=== PATIENT | male | born 1990 | race African-American/Black ===

== ENCOUNTER 2022-08-13 09:50 | Emergency (ER) | payer OTHER ==
[~2022-08-13] VITALS: Ht 193 cm; Wt 90.7 kg
[2022-08-13 09:55] VITALS: BP 148/88
--- NOTE | 2022-08-13 10:10 | NUR ---
32YO MALE PT BIBA FROM [facility]E C/O [place] XYESTERDAY. PT STATES SI DUE TO RECENT MONEY ISSUES W/ FAMILY WHO HE NORMALLY GOES TO WHEN FEELING DEPRESSED. +AUDIO HALLUCINATIONS "VOICES TELLING ME TO KILL MYSELF". STATES PLAN WOULD BE TO " TRY TO OD ON MY PILLS" . REPORTS FIRST FENTANYL USE LAST NIGHT AND NORMALLY BEING DAILY METH USER. PT WITH HX OF SI [id number] AGO AND STATES ATTEMPTING " RUN ONTO TRAFFIC ". ALSO C/O GROIN PRESSURED PAIN W/ PAIN AT MOST ON MOVEMENT, NO VISIBLE INJURY NOTED. DENIES N/V/D, CHEST PAIN, SOB , FEVER OR CHILLS. PT AAOX4, NO VISIBLE DISTRESS, SPEAKING IN CLEAR SENTENCES. ROOM STRIPPED OF POTENTIAL HARMFUL ITEM. PT IN VIEW AND IN GOWN. BED AT LOWEST POSITION, BED RAILS UPX2. HX:BIPOLAR, SCHIZO NKA MEDS: SEROQUEL, BUSPAR, WELLBUTRIN
--- NOTE | 2022-08-13 10:15 | NUR ---
pt swabbed for covid(jovana/novel) handed to lab
--- NOTE | 2022-08-13 10:47 | NUR ---
32 y/o male biba from 03/12 in [place], c/o suicidal ideation after using meth, states it may have been laced with fentanyl. pt is now c/o numbness in bl feet and groin pain that started yesterday. pt denies plan to end life or hurt others/self, no hold in place. a&ox4, ambulates with steady gait. ermd made aware of pt status. pmh: meth use nka
[2022-08-13 11:42] LABS: BASOPHILS % (AUTO) 0.4 % (0.0-2.0); EOSINOPHILS # (AUTO) 0.5 K/uL (0-0.4); EOSINOPHILS % (AUTO) 5.6 % (0.0-4.0); HEMATOCRIT 43.9 % (36-52); HEMOGLOBIN 14.7 g/dL (12.0-18.0); LYMPHOCYTES # (AUTO) 2.9 K/uL (2.0-11.5); LYMPHOCYTES % (AUTO) 33.7 % (20.5-51.1); MEAN CORPUSCULAR HEMOGLOBIN 28 pg (27-31); MEAN CORPUSCULAR HGB CONC 34 g/dL (33-37); MEAN CORPUSCULAR VOLUME 84.6 fL (80-94); MONOCYTES # (AUTO) 0.7 K/uL (0.8-1.0); MONOCYTES % (AUTO) 7.7 % (1.7-9.3); NEUTROPHILS # (AUTO) 4.5 K/uL (1.8-7.7); NEUTROPHILS % (AUTO) 52.6 % (42.2-75.2); PLATELET COUNT (AUTO) 378 K/uL (140-450); RED BLOOD CELL COUNT(AUTO) 5.19 MIL/uL (4.20-6.10); RED CELL DISTRIBUTION WIDTH 13.5 % (11.6-13.7); WHITE BLOOD COUNT (AUTO) 8.5 K/uL (4.8-10.8)
[2022-08-13 12:10] LABS: ACETAMINOPHEN < 0.5 ug/ml (10-30); ALBUMIN 3.6 g/dL (3.4-5.0); ASPARTATE AMINOTRANSFERASE 21 U/L (15-37); CARBON DIOXIDE 28.6 mmol/L (21-32); CHLORIDE 103 mmol/L (98-107); CREATININE 1.1 mg/dL (0.6-1.3); GFR ARICAN-AMERICAN 100 mL/min (>90); GLUCOSE 108 mg/dL (74-106); POTASSIUM 3.6 mmol/L (3.5-5.1); SALICYLATE < 2.8 mg/dL (2.8-20.0); SODIUM SERUM 141 mmol/L (136-145); TOTAL BILIRUBIN 0.4 mg/dL (0.0-1.0); UREA NITROGEN, BLOOD 13 mg/dL (7-18)
[2022-08-13 12:36] LABS: BARBITURATE, URINE NEGATIVE ng/ml (NEG <=200); CANNABINOID, URINE POSITIVE ng/mL (NEG <=50); COCAINE, URINE NEGATIVE ng/mL (NEG <=300); OPIATE, URINE NEGATIVE ng/mL (NEG <=2000); PHENCYCLIDINE SCREEN,URINE NEGATIVE ng/mL (NEG <=25)
[2022-08-13 12:37] LABS: APPEARANCE,URINE CLEAR (CLEAR); BILIRUBIN,URINE 1+ (NEGATIVE); BLOOD, URINE NEGATIVE (NEGATIVE); COLOR,URINE YELLOW (YELLOW); LEUKOCYTE ESTERASE ,URINE NEGATIVE (NEGATIVE); NITRITE, URINE NEGATIVE (NEGATIVE); UGLUCOSE NEGATIVE (NEGATIVE)
[2022-08-13 12:53] LABS: BENZODIAZEPINE, URINE POSITIVE ng/mL (NEG <=200)
--- NOTE | 2022-08-13 13:20 | NUR ---
provided w/ food and drink. pt awake and eating in bed
--- NOTE | 2022-08-13 13:22 | NUR ---
CALL RECEIVED FROM MD CORTES. TO CALL BACK IN 30MIN
--- NOTE | 2022-08-13 16:21 | NUR ---
[facility] VOGT CALLED;PER DISPATCH WILL SENT UNIT
--- NOTE | 2022-08-13 17:01 | NUR ---
PER MD LEONG PT TO BE PLACED ON 5150 HOLD Addendum: 08/13/22 at 1704 by PHSEP [facility] VOGT CONTACTED
--- NOTE | 2022-08-13 17:25 | NUR ---
PT PLACED ON HOLD [facility] - BY OFFICER Luis Carlos MCKEON
--- NOTE | 2022-08-13 18:18 | NUR ---
pt provided with dinner. pt awake and eating in bed
--- NOTE | 2022-08-13 19:19 | NUR ---
REPORT GIVEN TO SUNITHA SIMS. TRANSFER OF CARE AT THIS TIME
--- NOTE | 2022-08-13 19:30 | NUR ---
ASSUMED CARE OF PT AT THIS TIME. PT CALM, RESTING. WAITING FOR BED AVAILABILTY WITH [facility]. VSS. WILL CONTINUE TO MONITORPAIN/COMFORT. PT DENIES ANY PAIN OR NEEDS AT THIS TIME.
--- NOTE | 2022-08-13 20:30 | NUR ---
NO CHANGE IN PT STATUS. PT CALM, RESTING. DENIES ANY PAIN OR NEEDS AT THIS TIME.
[2022-08-13] MEDS ORDERED: QUEtiapine FUMARATE 100 MG TAB PO SCH (21:00)
--- NOTE | 2022-08-13 21:30 | NUR ---
NO CHANGE IN PT STATUS. PT CALM, RESTING. DENIES ANY PAIN OR NEEDS AT THIS TIME.
--- NOTE | 2022-08-13 21:50 | NUR ---
SPOKE WITH DENY AT [facility]. REPORT AND STATUS GIVEN AT THIS TIME. WILL CALL US BACK
--- NOTE | 2022-08-13 22:00 | NUR ---
DENY CALLED BACK AND PT IS ACCEPTED, BUT UNABLE TO COME UNTIL 0800 08/14/22[address] BY [address]. GARCIA. PT WILL GO TO UNIT 2B
--- NOTE | 2022-08-13 23:30 | NUR ---
NO CHANGE IN PT STATUS. PT CALM, RESTING. DENIES ANY PAIN OR NEEDS AT THIS TIME.
--- NOTE | 2022-08-14 01:30 | NUR ---
NO CHANGE IN PT STATUS. PT CALM, RESTING. DENIES ANY PAIN OR NEEDS AT THIS TIME.
--- NOTE | 2022-08-14 03:30 | NUR ---
NO CHANGE IN PT STATUS. PT CALM, RESTING. DENIES ANY PAIN OR NEEDS AT THIS TIME.
--- NOTE | 2022-08-14 05:30 | NUR ---
NO CHANGE IN PT STATUS. PT CALM, RESTING. DENIES ANY PAIN OR NEEDS AT THIS TIME.
--- NOTE | 2022-08-14 07:15 | NUR ---
REPORT RECEIVED FROM SUNITHA SIMS. ASSUMED CARE AT THIS TIME
--- NOTE | 2022-08-14 07:20 | NUR ---
pt in view and at rest w/ eyes closed in supine position. respirations even and unlabored. bed at lowest position, bed rails up x2
--- NOTE | 2022-08-14 08:00 | NUR ---
pt provided w/ breakfast . pt awake and eating in bed
--- NOTE | 2022-08-14 08:41 | NUR ---
pt provided w/ new gown and hygiene products
[2022-08-14] MEDS ORDERED: buPROPion 150 MG TABER PO SCH (09:00)
--- NOTE | 2022-08-14 09:00 | NUR ---
[facility] AT BEDSIDE
[2022-08-14 09:08] VITALS: BP 130/71
--- NOTE | 2022-08-14 09:08 | NUR ---
Patient to be transferred to [facility] . Is being transferred due to INPATIENT PSYCH. Receiving facility has accepting physician and available space. ER physician has signed transfer form. Patient or responsible constitution party has agreed to transfer and signed form. Patient belongings inventoried and will be sent with patient. Copy of nursing notes, lab reports, EKG, Physicians Orders to be sent with patient. Report called to STUART RN at receiving facility BY PM NURSE. PT TX BY [facility]. ETA TO FACILITY <30MIN.
--- NOTE | 2022-08-14 09:47 | NUR ---
The patient's care was reviewed and supervised by [facility], RN.
== END 2022-08-14 09:08 ==
LOC: MED 09:50
DX: T40.412A Poisoning by fentanyl or fentanyl analogs, intentional self-harm, initial encounter (principal); Z20.822 Contact with and (suspected) exposure to COVID-19; T43.652A Poisoning by methamphetamines intentional self-harm, initial encounter; R45.851 Suicidal ideations; F31.9 Bipolar disorder, unspecified; F25.9 Schizoaffective disorder, unspecified; F19.10 Other psychoactive substance abuse, uncomplicated; F17.200 Nicotine dependence, unspecified, uncomplicated; F12.90 Cannabis use, unspecified, uncomplicated; Y92.89 Other specified places as the place of occurrence of the external cause
CPT/HCPCS: 36415; 80053; 80305; 81003; 85025; 87426; 87491; 87635; 93005; 99285; C9803; G0480; G0482